=== PATIENT | male | born 1960 | race Caucasian/White ===

== ENCOUNTER 2022-05-18 20:28 | Emergency (ER) | payer MEDICAID ==
[~2022-05-18] VITALS: Ht 170.2 cm; Wt 68.0 kg
[2022-05-18] MEDS ORDERED: ONDANSETRON ODT 4 MG TAB.RAPDIS SL ONE (21:00)
[2022-05-18] MEDS ORDERED: OLANZAPINE 10 MG VIAL IM ONE ×2 (21:00→21:05)
[2022-05-18 21:22] LABS: HEMATOCRIT 47.8 % (36.7-47.1); MEAN CORPUSCULAR HEMOGLOBIN 31.9 uug (23.8-33.4); MEAN CORPUSCULAR VOLUME 92.8 fL (73.0-96.2); PLATELET COUNT (AUTO) 287 K/uL (152-348)
[2022-05-18 21:24] LABS: CARBON DIOXIDE 25 mmol/L (21-32); CHLORIDE 106 mmol/L (98-107); GLUCOSE 153 mg/dL (74-106); POTASSIUM 3.6 mmol/L (3.5-5.1); UREA NITROGEN, BLOOD 20 mg/dL (7-18)
[2022-05-18 21:38] LABS: THYROID STIMULATING HORMONE 0.873 mIU/mL (0.358-3.740)
[2022-05-18 21:40] LABS: ALANINE AMINOTRANSFERASE 74 U/L (16-63); ALKALINE PHOSPHATASE 137 U/L (50-136); ASPARTATE AMINOTRANSFERASE 21 U/L (15-37); BILIRUBIN,DIRECT < 0.1 mg/dL (0.0-0.2); BILIRUBIN,TOTAL 0.4 mg/dL (0.2-1.0); TOTAL PROTEIN, SERUM 7.3 g/dL (6.4-8.2)
[2022-05-18 21:42] LABS: ACETAMINOPHEN < 10.0 ug/mL (10-30)
[2022-05-18 21:43] LABS: ETHANOL < 3 MG/DL (0-0)
[2022-05-18] MEDS ORDERED: ONDANSETRON ODT 4 MG TAB.RAPDIS ONE (22:04)
--- NOTE | 2022-05-19 | NUR ---
John from [facility] here to eval patient.
[2022-05-19] MEDS ORDERED: LORAZEPAM 2 MG/1 ML VIAL IM ONE (00:15)
[2022-05-19] MEDS ORDERED: LORAZEPAM 2 MG/1 ML VIAL ONE (00:18)
[2022-05-19] MEDS ORDERED: diphenhydrAMINE 50 MG/1 ML VIAL IM ONE (01:00)
--- NOTE | 2022-05-19 01:30 | NUR ---
Patient constantly getting out of bed. No following drection. Dr Pollack made aware.
[2022-05-19] MEDS ORDERED: KETAMINE HCL 500 MG/10 ML INJ ONE (01:34)
[2022-05-19] MEDS ORDERED: KETAMINE HCL 500 MG/10 ML INJ IV ONE (01:45)
[2022-05-19] MEDS ORDERED: diphenhydrAMINE 50 MG/1 ML VIAL ONE (02:37)
--- NOTE | 2022-05-19 02:40 | NUR ---
Fredo pruett in [facility] - 05/19/22 at 0255 by QUINN PLACED IN 5B AT THIS TIME DUE TO NO BEDS AVAQILABLE IN THE ER AND HOLDING ICU IN ROOM 3.
[2022-05-19] MEDS ORDERED: diphenhydrAMINE 50 MG/1 ML VIAL IV ONE (02:45)
[2022-05-19] MEDS ORDERED: HALOPERIDOL LACTATE 5 MG/1 ML VIAL ONE (03:14)
[2022-05-19] MEDS ORDERED: HALOPERIDOL LACTATE 5 MG/1 ML VIAL IM ONE (03:15)
--- NOTE | 2022-05-19 03:30 | NUR ---
1:1 sitter at bedside.
--- NOTE | 2022-05-19 08:24 | NUR ---
Dr. Morgan here to evaluate patient.
--- NOTE | 2022-05-19 08:25 | NUR ---
[facility] to arrive at [phone].
--- NOTE | 2022-05-19 08:25 | NUR ---
Dr. Morgan states that he is breaking the 5150 hold.
--- NOTE | 2022-05-19 08:46 | NUR ---
Clinical Social Work Note: SW consult requested for a patient in the emergency room. Patient is a 61-year-old male brought to the emergency room from [facility] [address] [place] [address] ([phone]) due to increased bizarre behavior and agitation and aggression towards staff. Patient was put on a 5150 hold by SHERLY Mauricio on 05/18/[address] Morgan, broke the 5150 hold on 05/19/22 after further evaluation. Patient appears calm and cooperative at this time. SW called [facility] [address] [place] [address] ([phone]) informed Yaneli mckoy that the patient will be returning. JOYA called [facility] and the patient will be picked up at 9:45-10am. JOYA informed the charge nurse, Chiqui and Doctor, Diego Madrid in the emergency room.
--- NOTE | 2022-05-19 09:52 | NUR ---
Ambulance arrived to [facility] picker patient.
[2022-05-19 10:26] VITALS: BP 136/90
== END 2022-05-19 10:00 ==
LOC: ER 20:35
DX: F23 Brief psychotic disorder (principal); F32.9 Major depressive disorder, single episode, unspecified; Z20.822 Contact with and (suspected) exposure to COVID-19
CPT/HCPCS: 80076; 80048; 84443; 85025; 87426; 36415; 93005; 99285; 96372 ×2; 80299; 80320; 87081; 96374; 96375; J1200; J1630; J3490; J2060; G0480; J2358; Q0162